=== PATIENT | male | born 1950 | race Caucasian/White ===

== ENCOUNTER 2016-12-23 14:00 | Emergency (ER) | payer OTHER ==
[2016-12-23 14:22] VITALS: BP 143/88; PULSE 64; RESP 18; TEMP 98.1; O2SAT 96
--- NOTE | 2016-12-23 16:28 | EDPHY ---
H & P Time Seen by Provider: 12/23/16 16:11 HPI/ROS: Chief complaint. Right foot pain HPI. 66-year-old male presents emergency department 2 nights after being awakened with a severe cramp between the 4th and 5th toes of his right foot. Went on for several minutes and then resolved. And then recurred shortly thereafter. Today he notes that toes 2 and 3 are swollen and bruised. Denies injury. Otherwise no swelling to his foot his ankle or his calf. He has no chest discomfort or trouble breathing. Really does not hurt to walk on. He has had no fever. He went on a 3 mi walk today and had no symptoms other than mild discomfort to his toes. ROS Constitutional. no fever/chills, no weakness Eyes. no problems with vision ENT. no sore throat, no nasal drainage Cardiovascular. no chest pain Respiratory. no shortness of breath, no cough Abdominal. no abdominal pain, no nausea/vomiting, no diarrhea . no problems urinating MS. pain, swelling, bruising to 2nd and 3rd toes right foot. Remainder of lower extremity exam is normal Skin. no rash Lymph. no swollen glands Neuro. no headache, no dizziness, no difficulty walking or with speech Past Medical/Surgical History: Hemochromatosis Social History: , nonsmoker, no alcohol Smoking Status: Never smoked Physical Exam: General Appearance: Alert well-developed male mild distress vital signs are stable Eyes: Pupils equal and round no pallor or injection. ENT, Mouth: Mucous membranes are moist. Respiratory: There are no retractions, lungs are clear to auscultation. Cardiovascular: Regular rate and rhythm. Gastrointestinal: Abdomen is soft and nontender, no masses, bowel sounds normal. Neurological: Awake and alert, sensory and motor exams grossly normal. Skin: Warm and dry, no rashes. Musculoskeletal: Neck is supple nontender. Extremities bruising and mild swelling to 2nd and 3rd toes right foot. Great toe and 4th and 5th toes are normal. Exam of the midfoot, arch, heel, ankle, calf, knee, thigh are normal. Dorsalis pedis pulse is full and symmetrical Psychiatric: Patient is oriented X 3, there is no agitation. Constitutional: Initial Vital Signs Temperature (C) 36.7 C 12/23/16 14:10 Heart Rate 64 12/23/16 14:10 Respiratory Rate 18 12/23/16 14:10 Blood Pressure 143/88 H 12/23/16 14:10 O2 Sat (%) 96 12/23/16 14:10 O2 Delivery Mode Room Air Allergies/Adverse Reactions: No Known Allergies Allergy (Unverified 12/23/16 14:22) Home Medications: Medication Instructions Recorded NK [No Known Home Meds] 12/23/16 Medical Decision Making - Diagnostics Imaging Results: Imaging Impressions Foot X-Ray 12/23/16 16:52 Impression: There is no acute or subacute osseous abnormality identified. X-ray right foot reviewed by me and discussed with Dr. Camacho shows no evidence of fracture dislocation ED Course/Re-evaluation: Re-evaluation 6:00 p.m.. Patient and I discussed imaging study results, treatment plan, criteria for return importance of follow-up and further evaluation. He expresses understanding and agreement Differential Diagnosis: Symptoms and findings certainly are consistent with trauma to the foot. I do not have an explanation for the intense spasm between the 4th and 5th toes which are now not symptomatic and now has bruising and swelling to toes 2 and 3. Nothing it foot, ankle, calf to suggest DVT. He has good pulses nothing to suggest arterial embolism or clotting. He has no systemic findings whatsoever Departure - Departure Disposition: Home, Routine, Self-Care Clinical Impression: Contusion, toes Qualifiers: Encounter type: initial encounter Toe: unspecified toe Damage to nail status: without damage Qualified Code(s): S90.129A - Contusion of unspecified lesser toe (s) without damage to nail, initial encounter Condition: Good Instructions: Contusion in Adults (ED) Additional Instructions: Elevation next 24 hours. Ibuprofen 600 mg every 6 hours for discomfort. Easy activity level day. Return for worsening symptoms. Re-evaluation by Dr. Schwartz in 2 days if not improved Referrals: Junior Schwartz MD [Primary Care Provider] - 2-3 days, if not improved
== END 2016-12-23 18:44 | disposition home or self-care (01) ==
DX: M79.81 Nontraumatic hematoma of soft tissue (principal)

== ENCOUNTER → 2017-01-15 | Outpatient (CLI) | payer OTHER | LOC: FIMAGING 15:03 | PROVIDERS: ATTEND Family Medicine Sports Medicine | DX: M19.071 Primary osteoarthritis, right ankle and foot (principal) ==